=== PATIENT | female | born 1970 | race Caucasian/White ===

== ENCOUNTER 2021-11-04 23:38 | Inpatient (IN) ==
[2021-11-04] MEDS ORDERED: Bacitracin OINTMENT TUBE TOPICAL ONE (23:59)
[2021-11-05 00:23] LABS: ABS Basophils 0.1 10^3/ul (0-0.2); ABS Lymphocytes 1.1 10^3/ul (1.0-4.8); ABS Monocytes 0.6 10^3/ul (0-0.8); ABS Neutrophils 6.9 10^3/ul (1.5-7.7); Eosinophil % 0.1 %; Hematocrit 39 % (35-47); Hemoglobin 12.9 g/dL (12.0-16.0); Lymphocyte % 12.3 %; Mean Corpuscular HGB Conc 33 g/dL (31-36); Mean Corpuscular Hemoglobin 31 pg (27-31); Mean Corpuscular Volume 94 fL (80-97); Mean Platelet Volume 7.4 fL (7.4-10.4); Platelet Count 246 10^3/uL (150-450); Red Blood Count 4.14 10^6 /uL (3.70-4.87); Red Cell Distribution Width 14 % (10-15); White Blood Count 8.6 10^3/uL (3.5-10.8)
[2021-11-05 00:45] LABS: ALT 21 U/L (7-52); AST 37 U/L (13-39); Acetaminophen < 15 mcg/mL; Albumin 5.1 g/dL (3.2-5.2); Alcohol, S < 13 mg/dL (<13); Alkaline Phosphatase 74 U/L (35-149); Anion Gap 11 mmol/L (2-11); Blood Urea Nitrogen 18 mg/dL (6-24); CO2 Carbon Dioxide 26 mmol/L (22-32); Calcium 10.3 mg/dL (8.6-10.3); Chloride 100 mmol/L (101-111); Globulin 2.6 g/dL (2-4); Glucose 97 mg/dL (70-100); Salicylate < 2.50 mg/dL (<30); Sodium 137 mmol/L (135-145); Total Protein 7.7 g/dL (6.4-8.9); eGFR CKD-EPI 76.4 (>60)
[2021-11-05 01:00] LABS: TSH Ultra Thyroid Stim Horm 1.89 mcIU/mL (0.34-5.60)
[2021-11-05 02:00] LABS: Urine Appearance Cloudy; Urine Bilirubin Negative (Negative); Urine Blood 1+ (Negative); Urine Color Yellow; Urine Glucose Negative (Negative); Urine Ketones 1+ (Negative); Urine Nitrite Negative (Negative); Urine Protein Negative (Negative); Urine Specific Gravity 1.011 (1.002-1.030); Urine Urobilinogen Negative (Negative)
[2021-11-05 02:18] LABS: Urine Benzodiazepine Screen None Detected (None Detect); Urine Cannabinoids Screen None Detected (None Detect); Urine Opiates Screen None Detected (None Detect)
[2021-11-05 02:45] LABS: Urine Bacteria 1+ (Absent); Urine Granular Casts Present (Absent); Urine Red Blood Cell 3+(>10/hpf) (Absent); Urine Squamous Epithelial Cell Present (Absent); Urine White Blood Cell 2+(11-20/hpf) (Absent)
[2021-11-05 03:02] LABS: HIV 4th Generation Nonreactive (Nonreactive)
[2021-11-05] MEDS ORDERED: Sulfamethox/Trimethoprim DS TAB 800/160 mg PO ONE (03:04)
[2021-11-05] MEDS ORDERED: Al Hydrox/Mg Hydrox/Simet LIQ 30 ML UDC PO PRN (05:59)
[2021-11-05] MEDS: Vitamin THERAPEUTIC TAB PO SCH (13:30)
[2021-11-05] MEDS ORDERED: OLANZapine 5 mg TAB *ODT PO PRN (15:26)
[2021-11-06 08:04] LABS: HDL Cholesterol 48.9 mg/dL
[2021-11-06 08:10] LABS: HCG Pregnancy 3.51 mIU/mL
[2021-11-06] MEDS: Vitamin THERAPEUTIC TAB PO SCH (09:19)
[2021-11-07] MEDS: Vitamin THERAPEUTIC TAB PO SCH (08:29)
[2021-11-07] MEDS: Nicotine GUM 2MG FRUIT FLAVOR PO PRN (15:04)
[2021-11-08] MEDS: Vitamin THERAPEUTIC TAB PO SCH (09:42)
[2021-11-08] MEDS: Nicotine GUM 2MG FRUIT FLAVOR PO PRN ×2 (12:56→16:09)
[2021-11-09] MEDS: Vitamin THERAPEUTIC TAB PO SCH (07:49)
[2021-11-09] MEDS: Nicotine GUM 2MG FRUIT FLAVOR PO PRN ×2 (12:17→15:16)
[2021-11-10] MEDS: Vitamin THERAPEUTIC TAB PO SCH (09:53)
[2021-11-10] MEDS: Nicotine GUM 2MG FRUIT FLAVOR PO PRN ×2 (12:32→14:35)
[2021-11-11] MEDS: Vitamin THERAPEUTIC TAB PO SCH (06:59)
[2021-11-11] MEDS: Nicotine GUM 2MG FRUIT FLAVOR PO PRN ×3 (07:00→16:16)
[2021-11-12] MEDS: Vitamin THERAPEUTIC TAB PO SCH (07:55)
[2021-11-12] MEDS: Nicotine GUM 2MG FRUIT FLAVOR PO PRN ×2 (11:00→16:20)
[2021-11-13 08:07] VITALS: BP 117/85
[2021-11-13] MEDS: Vitamin THERAPEUTIC TAB PO SCH (08:43)
[2021-11-13] MEDS: Nicotine GUM 2MG FRUIT FLAVOR PO PRN (11:06)
== END 2021-11-13 14:10 | disposition home or self-care (01) | DRG 885 ==
LOC: ED 23:38 → BSU 11-05 02:40
PROVIDERS: ADMIT Psychiatry & Neurology Psychiatry; ATTEND Psychiatry & Neurology Psychiatry